=== PATIENT | female | born 1930 | race Caucasian/White ===

== ENCOUNTER 2017-08-14 13:29 | Emergency (ER) | payer OTHER, MEDICARE ==
[~2017-08-14] VITALS: Ht 162.6 cm; Wt 70.0 kg
[2017-08-14 14:15] VITALS: BP 172/74; PULSE 79; RESP 18; TEMP 98; O2SAT 95
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
[2017-08-14] MEDS ORDERED: IBUP-232 PO (16:11)
== END 2017-08-14 16:34 | disposition home or self-care (01) ==
LOC: NEPK 13:29
DX: M25.512 Pain in left shoulder (principal); S80.02XA Contusion of left knee, initial encounter; M25.552 Pain in left hip; I25.10 Atherosclerotic heart disease of native coronary artery without angina pectoris; E07.9 Disorder of thyroid, unspecified; I10 Essential (primary) hypertension; W03.XXXA Other fall on same level due to collision with another person, initial encounter; Y92.29 Other specified public building as the place of occurrence of the external cause; Z88.8 Allergy status to other drugs, medicaments and biological substances
CPT/HCPCS: 70450; 71045; 73030; 73502; 73564; 99284